=== PATIENT | female | born 1990 | race Caucasian/White ===

== ENCOUNTER 2017-03-14 11:40 | Emergency (ER) | payer OTHER ==
[~2017-03-14] VITALS: Ht 157.5 cm; Wt 72.6 kg
[~2017-03-14 11:40] MED LIST: CYCLOBENZAPRINE5 MG PO; HYDROXYZINE HCL10 MG PO; IRON27 MG PO; NAPROXEN500 MG PO; PRENATAL ONE T1 EACH PO; TUMS200 MG PO; VENLAFAXINE HCL75 M1 PO
[2017-03-14] MEDS ORDERED: ATIVAN0.5 MG PO (12:33)
== END 2017-03-14 12:55 | disposition home or self-care (01) ==
LOC: ED 11:40
DX: F41.9 Anxiety disorder, unspecified (principal)
CPT/HCPCS: 99283

== ENCOUNTER → 2017-12-22 | Emergency (ER) | payer OTHER ==
[~2017-12-22] VITALS: Ht 157.5 cm; Wt 81.2 kg
[~2017-12-22] MED LIST changes: +ATIVAN0.5 MG PO
== END ==
LOC: ED 17:30
DX: O20.9 Hemorrhage in early pregnancy, unspecified (principal); O99.341 Other mental disorders complicating pregnancy, first trimester; F41.9 Anxiety disorder, unspecified; O99.011 Anemia complicating pregnancy, first trimester; Z3A.12 12 weeks gestation of pregnancy
CPT/HCPCS: 76801; 80048; 81001; 84702; 85025; 86900; 86901; 99284